=== PATIENT | male | born 1980 | race Caucasian/White ===

== ENCOUNTER 2023-12-09 07:47 | Outpatient (OUT) | payer OTHER, SELFPAY ==
--- NOTE | 2023-12-09 08:26 | XR_ITS ---
The [address] [address] Patient Name: DARIA LITTLE MRN: [id number] date: 1980 Sex: M Assigned Patient Location: [facility] Current Patient Location: Accession/Order Number: [id number] Exam Date: 12/09/2023 08:50 Report Date: 12/10/2023 04:22 At the request of: RUBY URIBE Procedure: XR chest 2V EXAMINATION: XR chest 2V HISTORY: Preop exam COMPARISON: No relevant comparison available. FINDINGS: LUNGS: No significant pulmonary parenchymal abnormalities. VASCULATURE: No increased pulmonary vasculature. PLEURA: No pneumothorax, effusion, or pleural thickening. CARDIAC: No cardiomegaly or cardiac silhouette abnormality. MEDIASTINUM: No visible mass or adenopathy. BONES: No fracture or visible bone lesion. OTHER: Negative. XR/XR chest 2V IMPRESSION: 1. No acute cardiopulmonary process or suspicious chronic changes. Electronically authenticated by: KYARA HAYNES Date: 12/10/2023 04:22
--- NOTE | 2023-12-09 08:44 | P.GSHP_ITS ---
History of Present Illness History of Present Illness Chief complaint: left flank mass Narrative: Presents for testing. The patient states he has a history multiple growths and masses on his skin which come and go. He states he has had these for many years. He states he has one particular mass on his left side that is causing pain when he bumps it. He states he has not had any redness, warmth, or drainage from the areas. Review of Systems ROS Narrative REVIEW OF SYSTEMS: Negative except as stated in HPI, ten or more systems reviewed. Constitutional: No fever, chills, weakness ENT: No sore throat or epistaxis Cardiovascular: No edema, chest pain, palpitations, or activity intolerance Respiratory: No shortness of breath, cough, or wheezing Musculoskeletal: No joint pain or swelling Gastrointestinal: No abdominal pain, constipation, diarrhea, or vomiting Genitourinary: No dysuria or hematuria Neurological: No numbness, tingling, weakness, or headache Psychiatric: No mood changes PFSH PFSH Medical History (Updated 12/09/23 @ 08:25 by Alecia Macias NP) Back pain ?M54.9 - Dorsalgia, unspecified (ICD-10) Arthritis ?M19.90 - Unspecified osteoarthritis, unspecified site (ICD-10) Electronic cigarette use ?Z78.9 - Other specified health status (ICD-10) COVID-19 ?U07.1 - COVID-19 (ICD-10) Heartburn ?R12 - Heartburn (ICD-10) Left flank mass ?R19.00 - Intra-abdominal and pelvic swelling, mass and lump, unspecified site (ICD-10) Surgical History (Updated 12/09/23 @ 08:25 by Alecia Macias NP) History of wisdom tooth extraction ?K08.409 - Partial loss of teeth, unspecified cause, unspecified class (ICD-1 0) History of vasectomy ?Z98.52 - Vasectomy status (ICD-10) Family History (Updated 12/09/23 @ 08:25 by Alecia Macias NP) Other Family history of heart disease Family history of myocardial infarction Family history of stroke Social History (Updated 12/09/23 @ 08:21 by Alecia Macias NP) Within the past year, how often did you have a drink containing alcohol: monthly or less Do you use any of these nicotine containing products: e-cigarettes Non-prescribed substance use: denies use Previous occupational history: [employer] Highest level of school completed/degree received: high school graduate Meds Home Medications and Allergies Home Medications ?Medication ?Instructions ?Recorded ?Confirmed ?Type famotidine 20 mg tablet 20 mg PO DAILY 12/09/23 12/09/23 History naproxen sodium 220 mg capsule 220 mg PO Q12H 12/09/23 12/09/23 History (Aleve) Allergies Allergy/AdvReac Type Severity Reaction Status Date / Time No Known Drug Allergies Allergy Verified 12/09/23 08:19 Exam Narrative Exam Narrative: Constitutional: Awake, alert, comfortable, well-appearing, nontoxic, interactive, vital signs as charted Head: Normocephalic, atraumatic Neck: Supple, normal appearance, normal range of motion, no meningeal signs, no lymphadenopathy Respiratory: No respiratory distress, breath sounds clear Cardiovascular: Regular rate and rhythm, strong and regular heart tones Abdomen: Nontender, normal bowel sounds, soft, no CVA tenderness Musculoskeletal: Normal gait, no swelling or edema Skin: Mildly tender firm mobile mass left flank, no erythema or drainage Neuro: No neurological deficits, normal sensation Psychiatric: Oriented ?3, normal affect Assessment and Plan Assessment and Plan (1) Left flank mass: Plan Excision of left flank mass scheduled with Dr. Wilson December 13, 2023.
== END 2023-12-09 07:48 | disposition home or self-care (01) ==
LOC: PST 07:51
PROVIDERS: PCP Family Medicine; Visit Provider Surgery
DX: Z01.810 Encounter for preprocedural cardiovascular examination (principal); Z01.818 Encounter for other preprocedural examination; R19.04 Left lower quadrant abdominal swelling, mass and lump
CPT/HCPCS: 71046; G0463

== ENCOUNTER 2023-12-27 06:26 | Day surgery (SDC) | payer OTHER, SELFPAY ==
[2023-12-09 08:38] VITALS: BP 136/95; PULSE 76; TEMP 36.4; O2SAT 99; BMI 26.7
--- OUTSIDE RECORDS SUMMARY | 2023-12-27 06:28 | XMS_ITS | CCD ---
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 Name Role Phone TOMMY, DR NINOSKA Gonzalez Admitting Unavailable TOMYM, DR NINOSKA Gonzalez Attending Unavailable TOMMY, DR NINOSKA Gonzalez Consulting Unavailable TOMMY, DR NINOSKA Gonzalez Primary Care Unavailable TOMMY, DR NINOSKA Gonzalze Attending Unavailable TOMMY, DR NINOSKA Gonzalez Consulting Unavailable TOMMY, DR NINOSKA Gonzalez Admitting Unavailable TOMMY, NINOSKA Attending Unavailable Problems Problem Classification Problem Date Documented Da te Episodic/Chronic Nutritional deficiencies (1 source) Vitamin D deficiency, unspecified; Translations: [VITAMIN D DEFICIENCY UNSPECIFIED] Onset: 04-11-2021 Chronic Viral infection (4 sources) COVID-19; Translations: [COVID-19] Onset: 01-01-2021 Results Test Name Value Interpretation Reference Range Facility CBC AUTO DIFFon 04-07-2021 BASO # 0.1 103/ul Normal 0.0-0.1 [facility] Comment on above: Performed By: #### C BC #### [facility] [address] [place] [address] Dr. Leda Caceres Basophils/100 WBC (Bld) 0.6 % Normal 0.2-2.0 [facility] Comment on above: Performed By: #### C BC #### [facility] [address] [address] [address] Leda Caceres EO # 0.7 103/ul Normal 0.0-0.7 [facility] Comment on above: Performed By: #### C BC #### [facility] [address] [place] [address] Dr. Leda Caceres Eosinophils/100 WBC (Bld) 6.8 % Normal 0.9-7.0 [facility] Comment on above: Performed By: #### C BC #### [facility] [address] [place] [address] Dr. Leda Caceres Erythrocyte distribution width (RBC) [Ratio] 12.8 % Normal 11.0-15.0 [facility] Comment on above: Performed By: #### C BC #### [facility] [address] [place] [address] Dr. Leda Cacerse Hematocrit (Bld) [Volume fraction] 46.2 % Normal 42.0-54.0 [facility] Comment on above: Performed By: #### C BC #### [facility] [address] [place] [address] Dr. Leda Caceres Hemoglobin (Bld) [Mass/Vol] 15.6 g/dL Normal 14.0-18.0 [facility] Comment on above: Performed By: #### C BC #### [facility] [address] [place] [address] Dr. Leda Caceres IG # 0.05 10e3/ul Critically high 0.00-0.03 [facility] Comment on above: Performed By: #### C BC #### [facility] [address] [place] [address] Dr. Leda Caceres IG % 0.5 % Normal 0.0-0.5 [facility] Comment on above: Performed By: #### C BC #### [facility] [address] [place] [address] Dr. Leda Caceres LYMPH # 2.3 103/ul Normal 1.2-3.8 [facility] Comment on above: Performed By: #### C BC #### [facility] [address] [place] [address] Dr. Leda Caceres Lymphocytes/100 WBC (Bld) 21.6 % Normal 20.5-60.0 [facility] Comment on above: Performed By: #### C BC #### [facility] [address] [place] [address] Dr. Leda Caceres MANUAL DIFF REQ NO Normal [facility] Comment on above: Performed By: #### C BC #### [facility] [address] [place] [address] Dr. Leda Caceres MCH (RBC) [Entitic mass] 28.9 pg Normal 25.9-34.0 [facility] Comment on above: Performed By: #### C BC #### [facility] [address] [address] [address] Leda Caceres MCHC (RBC) [Mass/Vol] 33.8 g/dL Normal 29.9-35.2 [facility] Comment on above: Performed By: #### C BC #### [facility] [address] [place] [address] Dr. Leda Caceres MCV (RBC) [Entitic vol] 85.6 fL Normal 80.0-94.0 [facility] Comment on above: Performed By: #### C BC #### [facility] [address] [place] [address] Dr. Leda Caceres MONO # 1.0 103/ul Critically high 0.3-0.8 [facility] Comment on above: Performed By: #### C BC #### [facility] [address] [place] [address] Dr. Leda Caceres Monocytes/100 WBC (Bld) 9.0 % Normal 1.7-12.0 [facility] Comment on above: Performed By: #### C BC #### [facility] [address] [place] [address] Dr. Leda Caceres NEUT # 6.6 103/ul Critically high 1.4-6.5 [facility] Comment on above: Performed By: #### C BC #### [facility] [address] [place] [address] Dr. Leda Caceres Neutrophils/100 WBC (Bld) 61.5 % Normal 43.0-75.0 [facility] Comment on above: Performed By: #### C BC #### [facility] [address] [place] [address] Dr. Leda Caceres Platelet mean volume (Bld) [Entitic vol] 10.1 fL Normal 9.5-13.5 [facility] Comment on above: Performed By: #### C BC #### [facility] [address] [address] [address] Leda Caceres PLT 332 103/ul Normal 150-450 [facility] Comment on above: Performed By: #### C BC #### [facility] [address] [address] [address] Leda Caceres RBC 5.40 106/ul Normal 4.70-6.10 [facility] Comment on above: Performed By: #### C BC #### [facility] [address] [address] [address] Leda Caceres WBC 10.8 103/ul Normal 4.0-11.0 [facility] Comment on above: Performed By: #### C BC #### [facility] [address] [address] [address] Leda Caceres GLYCOHEMOGLOBIN A1Con 2020 ADA RECOMMENDATION ADA THERAPEUTIC TARGET 6.0 - 7.0 ACTION SUGGESTED > 7.0 Normal [facility] Comment on above: Performed By: #### A 1C #### [facility] [address] [place] [address] Dr. Leda Caceres Glucose [Mass/Vol] 100 mg/dL Normal [facility] Comment on above: Performed By: #### A 1C #### [facility] [address] [address] [address] Leda Caceres HbA1c (Bld) [Mass fraction] 5.1 % Normal <=6.0 [facility] Comment on above: Performed By: #### A 1C #### [facility] [address] [place] [address] Dr. Leda Caceres LIPID PROFILEon 04-07-2021 CHOL-HDL RATIO NORM SEE BELOW Normal [facility] Comment on above: Result Comment: 3.3 - 4.4 LOW RISK 4.4 - 7.1 AVERAGE RISK 7.1 - 11.0 MODERATE RISK >11.0 HIGH RISK Performed By: #### L IVER, LIPID, BMP, TSH, URIC #### [facility] [address] [address] [address] Leda Caceres Cholesterol [Mass/Vol] 244 mg/dL Critically high <=200 [facility] Comment on above: Performed By: #### L IVER, LIPID, BMP, TSH, URIC #### [facility] [address] [address] [address] Leda Caceres Cholesterol in HDL [Mass/Vol] 51 mg/dL Normal [facility] Comment on above: Performed By: #### L IVER, LIPID, BMP, TSH, URIC #### [facility] [address] [address] [address] Leda Caceres Cholesterol in LDL [Mass/Vol] 153.0 mg/dL Normal [facility] Comment on above: Performed By: #### L IVER, LIPID, BMP, TSH, URIC #### [facility] [address] [place] [address] Dr. Leda Caceres Cholesterol.total/Ch olesterol in HDL [Mass ratio] 4.8 {ratio} Normal [facility] Comment on above: Performed By: #### L IVER, LIPID, BMP, TSH, URIC #### [facility] [address] [place] [address] Dr. Leda Caceres HDL NORMAL > or = 60 mg/dl - LOW CARDIOVASCULAR RISK <40 mg/dl - HIGH CARDIOVASCULAR RISK Normal [facility] Comment on above: Performed By: #### L IVER, LIPID, BMP, TSH, URIC #### [facility] [address] [place] [address] Dr. Leda Caceres LDL CALC NORMAL SEE BELOW Normal [facility] Comment on above: Result Comment: <100 mg/dl OPTIMAL 100 - 129 mg/dl NEAR OR ABOVE OPTIMAL 130 - 159 mg/dl BORDERLINE HIGH 160 - 189 mg/dl HIGH >190 mg/dl VERY HIGH Performed By: #### L IVER, LIPID, BMP, TSH, URIC #### [facility] [address] [place] [address] Dr. Leda Caceres Triglyceride [Mass/Vol] 200 mg/dL Critically high <=150 [facility] Comment on above: Performed By: #### L IVER, LIPID, BMP, TSH, URIC #### [facility] [address] [place] [address] Dr. Leda Caceres VLDL CALC 40.0 mg/dL Normal [facility] Comment on above: Performed By: #### L IVER, LIPID, BMP, TSH, URIC #### [facility] [address] [address] [address] Leda Caceres LIVER PROFILEon 04-07-2021 Albumin [Mass/Vol] 4.3 g/dL Normal 3.5-5.0 [facility] Comment on above: Performed By: #### L IVER, LIPID, BMP, TSH, URIC #### [facility] [address] [place] [address] Dr. Leda Caceres Albumin/Globulin [Mass ratio] 1.1 {ratio} Normal [facility] Comment on above: Performed By: #### L IVER, LIPID, BMP, TSH, URIC #### [facility] [address] [place] [address] Dr. Leda Caceres ALP [Catalytic activity/Vol] 117 U/L Normal 38-126 [facility] Comment on above: Performed By: #### L IVER, LIPID, BMP, TSH, URIC #### [facility] [address] [address] [address] Leda Caceres ALT [Catalytic activity/Vol] 79 U/L Critically high 21-72 [facility] Comment on above: Performed By: #### L IVER, LIPID, BMP, TSH, URIC #### [facility] [address] [place] [address] Dr. Leda Caceres AST [Catalytic activity/Vol] 33 U/L Normal 17-59 [facility] Comment on above: Performed By: #### L IVER, LIPID, BMP, TSH, URIC #### [facility] [address] [address] [address] Leda Caceres BILI, CONJUGATED 0.1 mg/dL Normal 0.0-0.3 [facility] Comment on above: Performed By: #### L IVER, LIPID, BMP, TSH, URIC #### [facility] [address] [place] [address] Dr. Leda Caceres Bilirubin [Mass/Vol] 0.4 mg/dL Normal 0.2-1.3 [facility] Comment on above: Performed By: #### L IVER, LIPID, BMP, TSH, URIC #### [facility] [address] [place] [address] Dr. Leda Caceres Globulin (S) [Mass/Vol] 3.9 g/dL Normal [facility] Comment on above: Performed By: #### L IVER, LIPID, BMP, TSH, URIC #### [facility] [address] [place] [address] Dr. Leda Caceres Protein [Mass/Vol] 8.2 g/dL Normal 6.1-8.2 [facility] Comment on above: Performed By: #### L IVER, LIPID, BMP, TSH, URIC #### [facility] [address] [place] [address] Dr. Leda Caceres PROF CHEM 8 (BAS METB)on Anion gap [Moles/Vol] 13.1 mmol/L Normal [facility] Comment on above: Performed By: #### L IVER, LIPID, BMP, TSH, URIC #### [facility] [address] [place] [address] Dr. Leda Caceres Calcium [Mass/Vol] 9.8 mg/dL Normal 8.4-10.2 [facility] Comment on above: Performed By: #### L IVER, LIPID, BMP, TSH, URIC #### [facility] [address] [place] [address] Dr. Leda Caceres Chloride [Moles/Vol] 99 mmol/L Normal 98-107 [facility] Comment on above: Performed By: #### L IVER, LIPID, BMP, TSH, URIC #### [facility] [address] [place] [address] Dr. Leda Caceres CO2 [Moles/Vol] 28.4 mmol/L Normal 22.0-30.0 [facility] Comment on above: Performed By: #### L IVER, LIPID, BMP, TSH, URIC #### [facility] [address] [place] [address] Dr. Leda Caceres Creatinine [Mass/Vol] 0.88 mg/dL Normal 0.66-1.25 [facility] Comment on above: Performed By: #### L IVER, LIPID, BMP, TSH, URIC #### [facility] [address] [address] [address] Leda Caceres EGFR-AF ENGLISH >60 Normal >=60 [facility] Comment on above: Performed By: #### L IVER, LIPID, BMP, TSH, URIC #### [facility] [address] [address] [address] Leda Caceres EGFR-NON AF ENGLISH >60 Normal >=60 [facility] Comment on above: Performed By: #### L IVER, LIPID, BMP, TSH, URIC #### [facility] [address] [place] [address] Dr. Leda Caceres Glucose [Mass/Vol] 73 mg/dL Critically low 74-106 [facility] Comment on above: Performed By: #### L IVER, LIPID, BMP, TSH, URIC #### [facility] [address] [address] [address] Leda Caceres Potassium [Moles/Vol] 3.5 mmol/L Normal 3.4-5.0 [facility] Comment on above: Performed By: #### L IVER, LIPID, BMP, TSH, URIC #### [facility] [address] [place] [address] Dr. Leda Caceres Sodium [Moles/Vol] 137 mmol/L Normal 137-145 [facility] Comment on above: Performed By: #### L IVER, LIPID, BMP, TSH, URIC #### [facility] [address] [place] [address] Dr. Leda Caceres Urea nitrogen [Mass/Vol] 20.0 mg/dL Normal 9.0-20.0 [facility] Comment on above: Performed By: #### L IVER, LIPID, BMP, TSH, URIC #### [facility] [address] [place] [address] Dr. Leda Caceres Urea nitrogen/Creatinine [Mass ratio] 22.7 mg/mg Normal [facility] Comment on above: Performed By: #### L IVER, LIPID, BMP, TSH, URIC #### [facility] [address] [address] [address] Leda Caceres TSHon 04-07-2021 TSH 2.449 uIU/mL Normal 0.470-4.680 [facility] Comment on above: Performed By: #### L IVER, LIPID, BMP, TSH, URIC #### [facility] [address] [place] [address] Dr. Leda Caceres TSH RANGE SEE BELOW Normal [facility] Comment on above: Result Comment: <0.3 4 UIU/ml HYPERTHYROID 0.34-5.60 UIU/ml EUTHYROID >5.60 UIU/ml HYPOTHYROID Performed By: #### L IVER, LIPID, BMP, TSH, URIC #### [facility] [address] [place] [address] Dr. Leda Caceres URIC ACID SERUMon 04-07-2021 Urate [Mass/Vol] 6.8 mg/dL Normal 3.5-8.5 [facility] Comment on above: Performed By: #### L IVER, LIPID, BMP, TSH, URIC #### [facility] [address] [place] [address] Dr. Leda Caceres VITAMIN D 25 OHon 04-07-2021 VIT D 25-OH 18.5 ng/mL Normal [facility] Comment on above: Performed By: #### V ITAD #### [facility] [address] [place] [address] Dr. Leda Caceres VIT D RANGES SEE BELOW Normal [facility] Comment on above: Result Comment: <20 ng/mL Vit D deficient 20 - <30 ng/mL Vit D insufficient 30 - 100 ng/mL Vit D sufficient >100 ng/mL Potential Toxicity Performed By: #### V ITAD #### [facility] [address] [place] [address] Dr. Leda Caceres SYMPTOMATIC COVID-19 ANTIGEN on 01-01-2021 EUA Statement SEE BELOW Normal [facility] Comment on above: Result Comment: This test has not been FDA cleared or approved, but has been authorized by the FDA under an Emergency Use Authorization (EUA) for use by authorized laboratories certified under CLIA that meet the requirements to perform moderate or high complexity testing. This test has been authorized only for the detection of proteins from SARS-CoV-2, not for any other viruses or pathogens. The emergency use of this test is authorized for the duration of the declaration that circumstances exist justifying the authorization of emergency use of in vitro diagnostic tests for detection and/or diagnosis of Covid-19 under section 564(b)(1) of the Act, 21 U.S.C. 360bbb-3(b)(1), unless the declaration is terminated or authorization is revoked sooner. Performed By: #### C VDAGS #### [facility] [address] [place], [place] [id number] Sulema Ventura SARS-CoV-2 (COVID-19) RNA DANY+probe Ql (Unsp spec) Positive Critically abnormal NEGATIVE [facility] Comment on above: Performed By: #### C VDAGS #### [facility] [address] [place] [id number] Sulema Ventura Encounters Encounter Date Encounter Type Care Provider Facility Start: 10-19-2023 End: 10-19-2023 ambulatory NINOSKA SANDERS Not Available Start: 04-11-2021 Encounter for genera l adult medical examination without abnormal findings DR NINOSKA SANDERS [facility] Start: 04-07-2021 End: 04-08-[address] NINOSKA SANDERS Facility:[facility] Start: 04-07-2021 End: 04-08-2021 Encounter for general adult medical examination without abnormal findings DR NINOSKA SANDERS Facility:[facility] Start: 01-01-2021 End: 01-02-[address] NINOSKA SANDERS Facility:[facility] Payers Date Payer Category Payer Unknown [id number] 1980 Unknown [id number] 2.16.84 [id number] 1980 Unknown [id number] 2.16.84 [id number] 1980 Unknown [id number] 2.16.84 [id number] 1957 Unknown [id number] Summary Purpose Family History No Family History Records FoundNo Family History Records Found Advance Directives No Advanced Directives Records FoundNo Advanced Directives Records Found Additional Source Comments (unrecognized sect ion and content) No Status Records FoundNo Status Records Found INFORMATION SOURCE (unrecogn ized section and content) DATE CREATED AUTHOR 06/17/2021 [facility] DATE CREATED AUTHOR AUTHOR'S ORGANIZ ATION 10/21/2023 [facility] dicor Specialists [facility] FOR RECORDS PERTAINING TO PATIENTS WHO ARE OR HAVE BEEN ENROLLED IN A CHEMICAL DEPENDENCY/SUBSTANCEABUSE PROGRAM, SOME INFORMATION MAY BE OMITTED. This clinical summary was aggregated from multiple sources. Caution should be exercised in using it in the provision of clinical care. This summary normalizes information from multiple sources, and as a consequence, information in this document may materially change the coding, format and clinical context of patient data. In addition, data may be omitted in some cases. CLINICAL DECISIONS SHOULD BE BASED ON THE PRIMARY CLINICAL RECORDS. [facility] [employer] provides no warranty or guarantee of the accuracy or completeness of information in this document.
[2023-12-27 08:44] VITALS: BP 147/89; PULSE 80; TEMP 36.1; O2SAT 96; BMI 26.2
[2023-12-27] MEDS: LACTATED RINGER'S SOLUTION 1,000 ML 50 ML IV (09:01)
[2023-12-27] MEDS: LIDOCAINE HCL 1% 100 MG/10 ML MDV 9 ML INJ (10:35)
[2023-12-27 10:50] VITALS: BP 119/73; PULSE 85; TEMP 36.8; O2SAT 96
[2023-12-27 11:05] VITALS: BP 116/80; PULSE 85; O2SAT 99
[2023-12-27 11:20] VITALS: BP 137/91; PULSE 72; O2SAT 99
--- NOTE | 2023-12-27 11:48 | W.PM.PROCNOT ---
Date of procedure: 12/27/23 Pre-op diagnosis: left flank mass Post-op diagnosis: same as pre-op Procedure: Excision of left lateral flank lesion Procedure Details The patient was taken to Operating Room, identified as the correct patient and the procedure verified. A Time Out was held and the above information confirmed. The patient was placed in a right lateral position and anesthesia was induced per anesthesia team, along with placement of EPC cuffs. The left lateral flank area was prepped and draped in a sterile fashion. The area of planned incision was injected with 1% lidocaine with epi, approximately 4ml was used. A 15 blade was used to make an ellipse style incision around the lesion along the lines of Marlon. It was approximately 4 cm in length. Use of careful sharp and blunt dissection was carried out to remove the lesion in its entirety. The lesion was sent to pathology. The skin edges and incision site deep tissues were cauterized to ensure proper hemostasis. The skin incision was closed in a layered fashion. 3-0 Vircyl deep dermal sutures followed by a running 3-0 monocryl subcuticular running stitch. The area was cleansed and skin glue was applied. Instrument, sponge, and needle counts were correct at the conclusion of the case. Patient tolerated the procedure well without any complications.? Patient was transferred to PACU in stable condition. Anesthesia: MAC Surgeon: Stephen Wilson Estimated blood loss (mL): 3 Pathology: other (left flank mass) Condition: stable Disposition: PACU
== END 2023-12-27 11:20 | disposition home or self-care (01) ==
PROVIDERS: PCP Family Medicine; Visit Provider Surgery
PROC: (CPT 820; principal; 2023-12-27 08:50)
DX: D17.1 Benign lipomatous neoplasm of skin and subcutaneous tissue of trunk (principal); F17.290 Nicotine dependence, other tobacco product, uncomplicated; K21.9 Gastro-esophageal reflux disease without esophagitis
CPT/HCPCS: 21931; 88304; J2250; J2704; J3010